=== PATIENT | female | born 1995 | race Caucasian/White ===

== ENCOUNTER 2016-10-11 12:51 | Emergency (ER) | payer MEDICAID, OTHER ==
[~2016-10-11] VITALS: Ht 154.9 cm; Wt 70.0 kg
[~2016-10-11 12:51] MED LIST: BEN50 PO; IBUP-727 PO; PRED20TA PO
[2016-10-11 12:55] VITALS: Ht 154.9 cm; Wt 70.0 kg
[2016-10-11] MEDS ORDERED: AZIT250T94 PO (14:14)
[2016-10-11] MEDS ORDERED: CETI10CA PO (14:15)
[2016-10-11] MEDS ORDERED: UDROBDM PO (14:15)
[2016-10-11] MEDS ORDERED: FLUT9.9S NASAL (14:17)
--- NOTE | 2016-10-11 14:22 | ERD ---
ER Documentation Chief Complaint Date/Time DATE: 10/11/16 TIME: 14:19 Chief Complaint cough x 1 month HPI This a 21-year-old female who presents to the emergency department today complaining of cough for the past month. Patient states she initially had fevers but has not had any for several weeks. States she is taking a whole bottle of Mucinex with no improvement in symptoms. States that she thought it was her allergies but now she is unsure. Denies any sore throat, earache, nausea vomiting or diarrhea. ROS All systems reviewed and are negative except as per history of present illness. Medications Home Meds Active Scripts Fluticasone Propionate (Flonase Allergy Relief) 9.9 Ml [place].susp, 1 SPRAY NASAL DAILY, #1 BOTTLE TO EACH NOSTRIL Prov:SHIRA MARCUS PA-C 10/11/16 Guaifenesin-Dextromethorphan* (Robitussin* DM) 100MG/10MG/5ML Syrup, 10 ML PO Q6H Y for COUGH for 5 Days, ML Prov:SHIRA MARCUS PA-C 10/11/16 Cetirizine Hcl* (Zyrtec*) 10 Mg Capsule, 10 MG PO DAILY, #14 TAB.CHEW Prov:SHIRA MARCUS PA-C 10/11/16 Azithromycin* (Zithromax*) 250 Mg Tablet, 250 MG PO .ZPACK DIRECTED, #6 TAB TAKE 500 MG (2 TABS) THE FIRST DAY THEN 250 MG (1 TAB) DAYS 2-5 Prov:SHIRA MARCUS PA-C 10/11/16 Diphenhydramine Hcl* (Benadryl*) 50 Mg Cap, 50 MG PO Q6 Y for ITCHING, #30 Prov:RADHA MCELROY NP 05/10/15 Prednisone* (Prednisone*) 20 Mg Tab, 40 MG PO DAILY for 4 Days, TAB Prov:KATHERINE BEACH 05/09/15 Reported Medications Ibuprofen (Motrin) 600 Mg Tablet, 600 MG PO DAILY 05/13/12 Allergies Allergies: Coded Allergies: No Known Allergy (Unverified , 07/31/14) PMhx/Soc History of Surgery: No Anesthesia Reaction: No Hx Neurological Disorder: No Hx Respiratory Disorders: No Hx Cardiac Disorders: No Hx Psychiatric Problems: No Hx Miscellaneous Medical Probl: No Hx Alcohol Use: No Hx Substance Use: No Hx Tobacco Use: No Physical Exam Vitals Vital Signs Date Time Temp Pulse Resp B/P Pulse Ox O2 Delivery O2 Flow Rate FiO2 10/11/16 12:55 98.3 79 20 104/55 99 Physical Exam Const: No acute distress Head: Atraumatic Eyes: Normal Conjunctiva ENT: Ears TMs normal. Nose no drainage. Throat no erythema no exudate. Neck: Full range of motion..~ No meningismus. Resp: Clear to auscultation bilaterally. No absent breath sounds. No wheezing. Cardio: Regular rate and rhythm, no murmurs Skin: No petechiae or rashes Neur: Awake and alert Psych: Normal Mood and Affect Procedures/MDM This 21-year-old female who presents to the emergency department today for cough for the past month. Patient is afebrile and otherwise well-appearing here in the emergency department. Her oxygen saturation is 99%. She was seen in the [facility] area of the emergency department I do not feel she requires a chest x -ray. Low suspicion for pneumonia, PE, abscess, pleural effusion. Patient symptoms at this time is consistent with cough possibly secondary to bronchitis versus viral URI versus allergic rhinitis. Given the patient's length and duration of cough I will treat the patient with azithromycin. Patient was also given a prescription for Flonase, Zyrtec and Robitussin. At this time the patient is stable for discharge and outpatient management. Patient should follow up with their PCP in the next 1-2 days. They may return to the emergency department sooner for any persistent or worsening of symptoms. Patient understood and agreed with the plan. Departure Diagnosis: Primary Impression: Cough Condition: Fair Patient Instructions: What Is Bronchitis?, Cough, Chronic, Uncertain Cause, ( Adult) Referrals: COMMUNITY CLINICS YOU HAVE RECEIVED A MEDICAL SCREENING EXAM AND THE RESULTS INDICATE THAT YOU DO NOT HAVE A CONDITION THAT REQUIRES URGENT TREATMENT IN THE EMERGENCY DEPARTMENT. FURTHER EVALUATION AND TREATMENT OF YOUR CONDITION CAN WAIT UNTIL YOU ARE SEEN IN YOUR DOCTORS OFFICE WITHIN THE NEXT 1-2 DAYS. IT IS YOUR RESPONSIBILITY TO MAKE AN APPOINTMENT FOR FOLOW-UP CARE. IF YOU HAVE A PRIMARY DOCTOR --you should call your primary doctor and schedule an appointment IF YOU DO NOT HAVE A PRIMARY DOCTOR YOU CAN CALL OUR PHYSICIAN REFERRAL HOTLINE AT IF YOU CAN NOT AFFORD TO SEE A PHYSICIAN YOU CAN CHOSE FROM THE FOLLOWING [facility] [address] [facility]. [facility] [address] [facility]. [facility] [phone] [address] [facility]. [facility] [address] [facility]. [facility] [address] [facility]. [facility] [address] Additional Instructions: Call your primary care doctor TOMORROW for an appointment during the next 1-2 days.See the doctor sooner or return here if your condition worsens before your appointment time. Take all medications as prescribed Drink plenty of clear fluids SHIRA MARCUS PA-C Oct 11, 2016 14:21
== END 2016-10-11 14:17 | disposition home or self-care (01) ==
LOC: E/R 12:51
DX: R05 Cough (principal)
CPT/HCPCS: 99283